=== PATIENT | male | born 1955 | race Caucasian/White ===

== ENCOUNTER → 2024-07-19 12:31 | Outpatient (BNVA) | payer MEDICARE, SELFPAY | PROVIDERS: PCP Family Medicine; Visit Provider Internal Medicine | DX: R07.9 Chest pain, unspecified (principal); I45.89 Other specified conduction disorders; R94.39 Abnormal result of other cardiovascular function study; R06.09 Other forms of dyspnea; E11.9 Type 2 diabetes mellitus without complications; G47.30 Sleep apnea, unspecified; E78.5 Hyperlipidemia, unspecified; I10 Essential (primary) hypertension; Z87.891 Personal history of nicotine dependence; I45.9 Conduction disorder, unspecified | CPT/HCPCS: 93005; 99204 ==

== ENCOUNTER 2024-08-06 08:19 | Outpatient (CLI) | payer MEDICARE, SELFPAY ==
[2024-08-06 08:44] LABS: Basophils % 0.4 %; Eosinophils # 0.2 10^3/uL (0.0-0.8); Eosinophils % 4.1 %; Hematocrit 41.4 % (37-53); Lymphocytes # 1.2 10^3/uL (0.8-4.8); Lymphocytes % 26.5 %; Mean Corpuscular HGB Conc 31.4 g/dL (30-55); Mean Corpuscular Hemoglobin 31.4 pg (27-33); Mean Platelet Volume 10.2 fL (7.4-10.4); Monocytes # 0.5 10^3/uL (0.2-0.9); Monocytes % 11.5 %; Neutrophils # 2.63 10^3/uL (1.8-7.7); Neutrophils % 57.1 %; Nucleated Red Blood Cells % 0 %; Platelet Count 185 10^3/cmm (157-399); Red Blood Count 4.14 10^6/uL (3.85-5.65); White Blood Count 4.61 10^3/uL (3.29-11.43)
[2024-08-06 09:00] LABS: Anion Gap 15.2 (5-19); Blood Urea Nitrogen 26 mg/dL (8-23); Calcium 8.9 mg/dL (8.5-10.5); Carbon Dioxide 30 mmol/L (22-29); Chloride 100 mmol/L (98-107); Glomerular Filtration Rate 50.1 mL/min (90-130); Glucose 221 mg/dL (65-115); Osmolality Calculated 302 mOsm/kg (285-295); Potassium 5.2 mmol/L (3.5-5.1); Sodium 140 mmol/L (136-145)
[2024-08-06 09:03] LABS: INR 0.85 (0.83-1.21); Prothrombin Time (Patient) 11.8 Seconds (12.0-15.1)
== END 2024-08-06 08:20 | disposition home or self-care (01) ==
LOC: LAB 08:22
PROVIDERS: PCP Family Medicine; Visit Provider Internal Medicine
DX: R07.9 Chest pain, unspecified (principal)
CPT/HCPCS: 36415; 80048; 85025; 85610

== ENCOUNTER 2024-08-23 20:13 | Outpatient (CLI) | payer MEDICARE, SELFPAY ==
[2024-08-23 20:13] VITALS: BP 137/90; PULSE 80; RESP 21; TEMP 37.1; O2SAT 90
--- NOTE | 2024-08-23 20:15 | P.HP_ITS ---
Providers/Chief Complaint 2 Admitting Physician: Shahbaz Burt M.D Primary Care Provider: Jt Guerin MD Chief Complaint: Heart Catheter History of Present Illness Lisbet Smith is a 69 year old male with past medical history of hypertension, hyperlipidemia, diabetes who has been having chest discomfort and has dyspnea on exertion. Also has orthopnea. He is on oxygen. Has significant COPD. Patient has RV dysfunction with EF of 40 to 45%. Also had a abnormal stress test. Plan for a left heart cath Review of Systems 2 General: Reports: 10 or more systems reviewed and unremarkable except in HPI and below Const: Denies: fatigue Card: Reports: chest pain, palpitations, swelling of feet/ankles, lightheadedness, pre-syncope, dyspnea on exertion and orthopnea; Denies: irregular heart rhythm or syncope Resp: Reports: dyspnea; Denies: productive cough or non-productive cough Musc: Denies: neck pain or back pain Neuro: Denies: headache(s) or dizziness Psych: Denies: anxiety, depression, suicidal ideation or homicidal ideation Jean/Lymph: Reports: easy bruising and easy bleeding Medications/Allergies Home Medications Medication Instructions Recorded Confirmed Last Taken Type albuterol sulfate 90 mcg/actuation 2 puff inhalation Q6H PRN 07/19/24 08/23/24 08/23/24 History aerosol inhaler Shortness Of Breath allopurinol 100 mg tablet 100 mg PO DAILY 07/19/24 08/23/24 08/23/24 History aspirin 81 mg tablet,delayed 81 mg PO DAILY 07/19/24 08/23/24 08/23/24 History release atorvastatin 10 mg tablet 10 mg PO DAILY 07/19/24 08/23/24 08/23/24 History budesonide 160 mcg-glycopyr 9 2 inh inhalation BID 07/19/24 08/23/24 08/23/24 History mcg-formot 4.8 mcg/actuation HFA inhaler (Breztri Aerosphere) dapagliflozin propanediol 10 mg 10 mg PO DAILY 07/19/24 08/23/24 08/23/24 History tablet (Farxiga) fluticasone propionate 50 1 spray intranasal BID 07/19/24 08/23/24 08/23/24 History mcg/actuation nasal spray,suspension furosemide 40 mg tablet 40 mg PO DAILY 0808/23/24 08/23/24 History gabapentin 600 mg tablet 600 mg PO BID 07/19/24 08/23/24 08/23/24 History losartan 100 mg tablet 50 mg PO DAILY 07/19/24 08/23/24 08/23/24 History metformin 1,000 mg tablet 1,000 mg PO BID 07/19/24 08/23/24 08/23/24 08:00 History trazodone 300 mg tablet 300 mg PO DAILY PRN Sleep 07/19/24 08/23/24 08/23/24 History budesonide 160 mcg-glycopyr 9 2 inh inhalation BID 08/23/24 08/23/24 08/23/24 History mcg-formot 4.8 mcg/actuation HFA inhaler ([facility] [employer]) famotidine 20 mg tablet 20 mg PO BID 08/23/24 08/23/24 08/23/24 History hydroxychloroquine 200 mg tablet 200 mg PO BID 08/23/24 08/23/24 Unknown History magnesium oxide 250 mg PO BID 08/23/24 08/23/24 08/23/24 History polyethylene glycol 3350 17 gram 17 g PO DAILY 08/23/24 08/23/24 Unknown History oral powder packet (Miralax) zinc sulfate 220 mg capsule 220 mg PO DAILY 08/23/24 08/23/24 Unknown History Allergies Allergy/AdvReac Type Severity Reaction Status Date / Time No Known Allergies Allergy Verified 07/19/24 12:40 PFSH Acute 2 PFSH: Medical History Diabetes mellitus Sleep apnea Hyperlipemia Hypertension Family History Mother Hypertension Diabetes Social History Smoking and tobacco/nicotine status: former use of tobacco/nicotine Physical Exam 2 Narrative: GENERAL: Patient is alert, awake and oriented x3. [] NECK: No jugular vein distension. [] HEENT: No cyanosis. No icterus. No pallor. [] HEART: Regular S1 and S2. No murmur, rub or gallop. [] LUNGS: Clear to auscultate bilaterally. [] CENTRAL NERVOUS SYSTEM: Grossly nonfocal. [] EXTREMITIES: Lower extremities with 1+ edema bilaterally Data 08/23/24 21:28 08/24/24 06:10 A&P Assessment and plan (1) Chest pain: (2) Dyspnea on exertion: (3) Hypertension: (4) Hyperlipemia: (5) LV dysfunction: (6) Abnormal stress test: (7) Diabetes mellitus: Plan Patient is here for coronary angiogram with possible PCI. Admitted for hydration as last creatinine was 1.4. Will start IV fluids @75cc/hour. We will continue home medications for now. NPO past midnight. Attestations 2 Medical Necessity Statement*: Care not expected to cross 2 midnights. Preadmitted for hydration prior to coronary angiogram Coding Level of Care Code Acute Code for [facility] Diagnoses Chest pain R07.9 Dyspnea on exertion R06.09 Hypertension I10 Hyperlipemia E78.5 LV dysfunction I51.9 Abnormal stress test R94.39 Diabetes mellitus E11.9
[2024-08-23 20:33] VITALS: BMI 37.8
[2024-08-23] MEDS: sodium chloride 0.9% 1,000 ML 75 ML IV ×2 (20:56→22:09)
[2024-08-23 21:51] LABS: Basophils % 0.5 %; Eosinophils # 0.1 10^3/uL (0.0-0.8); Eosinophils % 1.7 %; Lymphocytes # 1.5 10^3/uL (0.8-4.8); Lymphocytes % 24.8 %; Mean Corpuscular HGB Conc 31.2 g/dL (30-55); Mean Corpuscular Hemoglobin 31.1 pg (27-33); Mean Corpuscular Volume 99.8 fl (82-101); Mean Platelet Volume 10.9 fL (7.4-10.4); Monocytes # 0.6 10^3/uL (0.2-0.9); Monocytes % 10.2 %; Neutrophils # 3.68 10^3/uL (1.8-7.7); Neutrophils % 62.5 %; Nucleated Red Blood Cells % 0 %; Platelet Count 186 10^3/cmm (157-399); Red Blood Count 4.21 10^6/uL (3.85-5.65); Red Cell Distribution Width 13.6 % (12.1-15.1); White Blood Count 5.89 10^3/uL (3.29-11.43)
[2024-08-23 22:07] LABS: Blood Urea Nitrogen 21 mg/dL (8-23); Calcium 9.4 mg/dL (8.5-10.5); Carbon Dioxide 29 mmol/L (22-29); Chloride 99 mmol/L (98-107); Creatinine Clr Calc Pharmacy 76.4977; Glomerular Filtration Rate 59.9 mL/min (90-130); Glucose 182 mg/dL (65-115); Osmolality Calculated 298 mOsm/kg (285-295); Sodium 140 mmol/L (136-145)
[2024-08-23 22:10] LABS: Anion Gap 16.5 (5-19); Potassium 4.5 mmol/L (3.5-5.1)
[2024-08-24] VITALS (13 sets, daily range): BP systolic 134–161; BP diastolic 69–97; PULSE 60–95; RESP 17–32; TEMP 36.3–37; O2SAT 91–96; BMI 37.8
--- NOTE | 2024-08-24 06:12 | XACV_ITS ---
Exam Room: [facility] Ht: 180 cm Wt: 121 kg BSA: 2.51 m2 Gender: Male : 1955 Any Known Allergies: No known allergies Exam Priority: Routine Procedure(s): Procedure Description: Diagnostic procedure Procedure Description: PCI procedure Procedure Description: Drug Eluting Coronary Stent Procedure Description: PTCA Procedure Description: Miscellaneous Procedure Description: ACT Procedure Description: Coronary Angiography Diagnostic Cath Status: Elective Diagnostic Findings * INDICATION: 69 year old male with past medical history of hypertension, hyperlipidemia, diabetes who has been having chest discomfort and has dyspnea on exertion. Also has orthopnea. He is on oxygen. Has significant COPD. Patient has LV dysfunction with EF of 40 to 45%. Also had a abnormal stress test. Plan for a left heart cath. * Left Main has no significant disease. * Left Anterior Descending has no significant disease. * Mid Circumflex: mild to moderate 40% stenosis, JOSE: 3 flow. * Mid Right Coronary Artery: significant 80% stenosis, JOSE: 3 flow. * Distal Right Coronary Artery: severe 90% stenosis, JOSE: 3 flow. * Coronary angiography shows right dominance. PCI Status: Elective PCI Indication: Other Interventional Findings * Procedure detail: We engaged RCA with JR4 guide catheter. IV heparin was administered to maintain anticoagulation. 0.014 run-through guidewire was used to cross the stenosis. We predilated distal RCA stenosis with 2.5 x 15 mm semicompliant balloon. This was followed by placement of 2.5 x 26 mm resolute Y[place] drug-eluting stent. We postdilated the stent with 2.75 x 12 mm NC balloon. Mid RCA stenosis was predilated with 2.5 x 15 mm semicompliant balloon. This was followed by placement of 2.75 x 30 mm resolute [place] drug-eluting stent. Stent was postdilated with 2.75 x 12 mm NC balloon. At this time final angiogram was performed that showed excellent stent expansion, no residual stenosis and JOSE-3 flow. Guidewire and guide catheter were removed. Patient left the [place] in a stable condition.. * Mid Right Coronary Artery: 80% stenosis treated with a AB TREK 2.50X15 RX BALLOON, MDT R YIMI 2.75X30 MONY, and MDT NC EUPHORA RX [id number] BALLOON. 0% residual stenosis, JOSE: 3 flow. * Distal Right Coronary Artery: 90% stenosis treated with a AB TREK 2.50X15 RX BALLOON, MDT R YIMI 2.5X26 MONY, and MDT NC EUPHORA RX [id number] BALLOON. 0% residual stenosis, JOSE: 3 flow. Conclusions 1. Severe mid and distal RCA stenosis. Status post successful revascularization with 2 stents.. 2. Mid Right Coronary Artery was treated with a Balloon, Drug Eluting Stent, and Balloon. 3. Distal Right Coronary Artery was treated with a Balloon, Drug Eluting Stent, and Balloon. Recommendations * Dual antiplatelet therapy with aspirin and plavix for at least 1 year. * Statin therapy. * Outpatient cardiology follow up in 2 weeks. Interventional RX Recommendation: PCI w/o planned CABG Diagnostic RX Recommendation: PCI w/o planned CABG Anticoagulation: Heparin Pressures Phase:Rest AO : 162 / 89 ( 116 ) @ 8:37:00 AM 124 / 88 ( 106 ) @ 8:47:00 AM 158 / 77 ( 108 ) @ 8:49:00 AM 148 / 91 ( 116 ) @ 9:03:00 AM 117 / 80 ( 98 ) @ 9:12:00 AM Clinical Evaluation EBL: 5mL-10mL Procedural Details Procedure Consent Obtained. Pre-Procedure Time Out. Identified patient by full name and date of as verbalized by the patient/guarantor. Does the consent match the physician's order: Yes. Accurate & Complete Informed Consent: Yes. Inpatient/Outpatient History & Physical on Chart: Yes. If H&P is completed, is and addenduem needed: No. Visualize and Verify Site with Patient/Guarantor: N/A. Relevant Radiology Images available: Yes. [facility] Clinical Fraility Score: 4: Vulnerable. [place] Indications: LV Dysfunction/abnormal stress test. Chest Pain Symptom Assessment: Typical Angina Symptoms. Cardiovascular Instability: No. The risks, benefits, and alternatives of sedation and/or procedure were discussed by physician. The patient agrees to continue. Procedure started. Correct patient, site and procedure confirmed by cath team. PERRLA. Strong, equal hand roll over press operator bilaterally. Lungs clear x 5 lobes. IV Site on Arrival: 20 gauge in the right forearm. IV Fluids: 0.9% NaCl at KVO. 700 mL infused prior to laborer high density press. Pre Procedural Pulses: right dorsalis pedis was 2+. Pre Procedural Pulses: left dorsalis pedis was 3+. Pre Procedural Pulses: bilateral posterior tibial was 2+. Pre Procedural Pulses: bilateral radial was 2+. Oxygen started at 4liters/min via nasal canula. right groin was prepped with chloroprep then draped in the usual sterile fashion. right radial was prepped with chloroprep then draped in the usual sterile fashion. Physician notified. Baseline sample Acquired. HR: 89 BPM. Patient's family unavailable. Equipment: 6F - Radial. Cardiac Cath Pack. ACIST Manifold Kit Model BT 2000. Heparinized Saline (2 units/mL), 1000 mL bag. Physician arrived. Physician scrubbed in. Immediate Pre-Procedure Time Out. Correct Patient: Yes; Correct Procedure: Yes; Correct Site: Yes; Correct Patient Position: Yes; Correct Supplies: Yes; Dried Flammable Prep: Yes; Blood Products Available: N/A;. Lidocaine 1% infiltrated to the right radial. Arterial access obtained. A 5 greek TIG catheter in over the exchange J wire. Multiple views taken of left coronary artery. Catheter redirected to the RCA. Catheter removed over the exchange J wire. A 5 greek JL3.5 catheter in over the exchange J wire. Multiple views taken of left coronary artery. Catheter removed over the exchange J wire. 6 greek JR 4 guide catheter was inserted over the wire. Runthrough guidewire was advanced through the guide catheter to lesion in the mid-distal RCA. Inflation number : 1 A AB TREK 2.50X15 RX BALLOON was prepped and advanced across the Dist RCA , then inflated to 8 MIKAELA for 0:16 seconds. Inflation number: 2 The AB TREK 2.50X15 RX BALLOON was reinflated across the Dist RCA, to 8 MIKAELA for 0:13 seconds. Inflation number: 1 The AB TREK 2.50X15 RX BALLOON was reinflated across the Mid RCA, to 10 MIKAELA for 0:11 seconds. Inflation number: 2 The AB TREK 2.50X15 RX BALLOON was reinflated across the Mid RCA, to 10 MIKAELA for 0:11 seconds. Balloon out. Results checked. Inflation Number : 3 A MDT R YIMI 2.5X26 MONY -Lot Number# [id number] was prepped and advanced across the Dist RCA. The stent was deployed at 12 MIKAELA for 0:21 seconds. Exp. 2026-07-23. Stent balloon out over wire. Inflation Number : 3 A MDT R YIMI 2.75X30 MONY -Lot Number# [id number] prepped and advanced across the Mid RCA. The stent was deployed at 14 MIKAELA for 0:29 seconds. Exp. 2024-10-07. Stent balloon out over wire. Inflation number : 4 A MDT NC EUPHORA RX [id number] BALLOON was prepped and advanced across the Dist RCA , then inflated to 14 MIKAELA for 0:19 seconds. Inflation number: 4 The MDT NC EUPHORA RX [id number] BALLOON was reinflated across the Mid RCA, to 20 MIKAELA for 0:17 seconds. Inflation number: 5 The MDT NC EUPHORA RX [id number] BALLOON was reinflated across the Mid RCA, to 20 MIKAELA for 0:09 seconds. Balloon out. ACT drawn. Results seconds. Therapeutic limits - pre-heparin administration 90-150 seconds and monitoring heparin during a vascular procedure >250 seconds. Results checked. Accu check = 190. Wire out. Guide catheter out over the exchange J wire. Dr. Burt scrubbed out. A TR Band was successful obtaining hemostatsis at the Right Radial artery insertion site. Post Procedure: Pulses reassessed and unchanged. PERRLA. Strong, equal hand roll over press operator bilaterally. No VTE prophylaxis required. Medication's Wasted: Lidocaine 1% = 18 mL. Medication's Wasted: Nitro = 49.6 mg. Medication's Wasted: Other = Fentanyl 25 mcg. Total IV fluids: 70 mL. PCI Indication: CAD (without ischemic symptoms). Post-op diagnosis: PCI of the Distal and Mid RCA. Complications: none. Estimated blood loss: 5mL-10mL. Responsiveness - Normal response to verbal stimuli; alert and oriented, PERRLA. Airway - Unaffected, no intervention required; spontaneous ventilation. Circulation: W/N/L, pulses unchanged. Nausea/Vomiting: No. Procedure completed. Patient transferred by bed to CPRU. Vital chart was stopped. Access Site Site: Right Radial artery Sheath Size: 6 Fr Hemostasis Method: TR Band Hemostasis Success: Successful Procedure Medications Start: 7:28 AM Stop: 7:28 AM Medication: Versed Amount: 1 mg Route: I.V. Start: 7:28 AM Stop: 7:28 AM Medication: Fentanyl Amount: 50 mcg Route: I.V. Start: 7:35 AM Stop: 7:35 AM Medication: Nitrogylcerin Amount: 200 mcg Route: I.A. Start: 7:37 AM Stop: 7:37 AM Medication: Heparin Amount: 5000 units Route: I.V. Start: 7:46 AM Stop: 7:46 AM Medication: Versed Amount: 1 mg Route: I.V. Start: 7:51 AM Stop: 7:51 AM Medication: Heparin Amount: 6000 units Route: I.V. Start: 8:04 AM Stop: 8:04 AM Medication: Fentanyl Amount: 25 mcg Route: I.V. Start: 8:11 AM Stop: 8:11 AM Medication: Nitrogylcerin Amount: 200 mcg Route: I.A. Start: 8:22 AM Stop: 8:22 AM Medication: Plavix Amount: 600 mg Route: P.O. I, the attending physician, have reviewed and verified all procedure medications. Yes, all medications given per verbal order History/Risk Factors Hypertension: Yes Dyslipidemia: Yes Peripheral Arterial Disease (PAD): No Myocardial Infarction (UT): No Obesity: Yes Renal Disease: No Tobacco Use: Former Prior Interventions PCI: No CABG: No Valve Surgery: No Report Signatures Finalized by Shahbaz Burt MD on 08/29/2024 07:16 PM
[2024-08-24] MEDS: diphenhydrAMINE 50 mg Capsule PO (06:19)
[2024-08-24] MEDS: aspirin 325 mg Tablet PO (06:19)
[2024-08-24 06:46] LABS: Anion Gap 14.6 (5-19); Blood Urea Nitrogen 19 mg/dL (8-23); Carbon Dioxide 31 mmol/L (22-29); Chloride 101 mmol/L (98-107); Creatinine Clr Calc Pharmacy 76.4977; Glomerular Filtration Rate 59.9 mL/min (90-130); Glucose 198 mg/dL (65-115); Osmolality Calculated 302 mOsm/kg (285-295); Potassium 4.6 mmol/L (3.5-5.1); Sodium 142 mmol/L (136-145)
--- NOTE | 2024-08-24 08:13 | PC.NURSE ---
to cardiac aquatic laborer via bed at 0700
[2024-08-24 08:54] LABS: Glucose Point of Care 190 mg/dL (70-110)
--- NOTE | 2024-08-24 10:07 | PC.NURSE ---
received from cardiac label cutter via bed at 0905.report received.pt is alert and oriented x 4.denies pain at present.sr on monitor.right wrist with tr band on and inflated.right hand is warm to touch and with brisk capillary refill.palpable radial pulse noted distal to tr band.no hematoma noted.pt instructed in activity restrictions s/p radial artery procedure...and instructed to notify staff for any bleeding,pain,sob,numbness...or for any concerns at all.pt verb understanding of instructions
[2024-08-24 11:48] LABS: Glucose Point of Care 219 mg/dL (70-110)
[2024-08-24] MEDS: sodium chloride 0.9% 1,000 ML 50 ML IV (15:23)
--- NOTE | 2024-08-24 15:25 | PC.NURSE ---
tr band slowly deflated and eventually removed at 1330.right hand remains warm to touch and with brisk capillary refill.palpable radial pulse noted.no hematoma noted.site dressed with 2x2 gauze and secured with biocclusive drsg.pt instructed in activity restrictions s/p tr band removal..and instructed to notify staff for any bleeding,pain,numbness,pain..or for any concerns at all.pt verb understanding of instructions.
[2024-08-24] MEDS: ipratropium-albuterol 3 mL Neb INHALATION (15:48)
--- NOTE | 2024-08-24 16:29 | PM.DCS ---
Discharge Providers Date of Admission: 08/23/2024 Date of Discharge: August 24, 2024 Attending Provider at Admission: Shahbaz Burt MD Attending Provider at Discharge: Shahbaz Burt M.D Primary Care Provider: Jt Guerin MD Diagnoses at Discharge Discharge Diagnosis (1) Chest pain: Status: Inactive (2) Dyspnea on exertion: Status: Acute (3) Hypertension: Status: Acute (4) Hyperlipemia: Status: Acute (5) LV dysfunction: Status: Acute (6) Abnormal stress test: Status: Inactive (7) Diabetes mellitus: Status: Acute Reason for Visit Reason for Visit: Left heart cath Brief History: 69 year old male with past medical history of hypertension, hyperlipidemia, diabetes who has been having chest discomfort and has dyspnea on exertion. Also has orthopnea. He is on oxygen. Has significant COPD. Patient has LV dysfunction with EF of 40 to 45%. Also had a abnormal stress test. Plan for a left heart cath. Preadmitted for hydration. Hospital Course Hospital Course Coronary angiogram demonstrated severe mid and distal RCA stenosis. Underwent successful revascularization with 2 stents. Creatinine was stable on day of procedure. Patient wanted to go home and was stable. Was discharged home on dual antiplatelet therapy. Physical Exam Narrative: GENERAL: Patient is alert, awake and oriented x3. [] NECK: No jugular vein distension. [] HEENT: No cyanosis. No icterus. No pallor. [] HEART: Regular S1 and S2. No murmur, rub or gallop. [] LUNGS: Clear to auscultate bilaterally. [] CENTRAL NERVOUS SYSTEM: Grossly nonfocal. [] EXTREMITIES: Lower extremities with 1+ edema bilaterally Discharge Data Studies Completed and Pending Pending at discharge Category Date Time Status ANTIQUE REFINISHER request for service Routine Exams 08/24/24 06:12 Taken Laboratory Results WBC 5.89 10^3/uL (3.29-11.43) 08/23/24 21:28 RBC 4.21 10^6/uL (3.85-5.65) 08/23/24 21:28 Hgb 13.10 g/dL (11.27-16.99) 08/23/24 21:28 Hct 42.0 % (37-53) 08/23/24 21:28 MCV 99.8 fl (82-101) 08/23/24 21:28 MCH 31.1 pg (27-33) 08/23/24 21: MCHC 31.2 g/dL (30-55) 08/23/24 21: RDW 13.6 % (12.1-15.1) 08/23/24: Plt Count 186 10^3/cmm (157-399) 08/23/24 21: MPV 10.9 fL (7.4-10.4) H 08/23/24 21: Neut % (Auto) 62.5 % 08/23/24 21: Lymph % (Auto) 24.8 % 08/23/24 21: [place] % (Auto) 10.2 % 08/23/24: Eos % (Auto) 1.7 % 08/23/24: Baso % (Auto) 0.5 % 08/23/24: Neut # (Auto) 3.68 10^3/uL (1.8-7.7) 08/23/24: Lymph # (Auto) 1.5 10^3/uL (0.8-4.8) 08/23/24 21: [place] # (Auto) 0.6 10^3/uL (0.2-0.9) 08/23/24: Eos # (Auto) 0.1 10^3/uL (0.0-0.8) 08/23/24 21: Baso # (Auto) 0.0 10^3/uL (0.0-0.1) 08/23/24: Nucleated RBC % (auto) 0 % 08/23/24 21: Nucleated RBCs # 0.0 /100WBC 08/23/24 21: Sodium 142 mmol/L (136-145) 08/24/24 06:10 Potassium 4.6 mmol/L (3.5-5.1) 08/24/24 06:10 Chloride 101 mmol/L (98-107) 08/24/24 06:10 Carbon Dioxide 31 mmol/L (22-29) H 08/24/24 06:10 Anion Gap 14.6 (5-19) 08/24/24 06:10 BUN 19 mg/dL (8-23) 08/24/24 06:10 Creatinine 1.2 mg/dL (0.7-1.2) 08/24/24 06:10 GFR Calculation 59.9 mL/min (90-130) L 08/24/24 06:10 Glucose 198 mg/dL (65-115) H 08/24/24 06:10 POC Glucose 219 mg/dL (70-110) H 08/24/24 11:44 Calculated Osmolality 302 mOsm/kg (285-295) H 08/24/24 06:10 Calcium 9.0 mg/dL (8.5-10.5) 08/24/24 06:10 Vitals Last Vital Signs Temp 97.4 F L 08/24/24 11:57 Pulse 69 08/24/24 15:48 Resp 18 08/24/24 15:48 BP 134/78 08/24/24 11:57 Pulse Ox 95 08/24/24 15:48 O2 Del Method Nasal Cannula 08/24/24 15:48 O2 Flow Rate 2 08/24/24 15:48 Discharge Plan Discharge Patient Disposition: Home Prescriptions: New clopidogrel 75 mg tablet 75 mg PO DAILY Qty: 90 3RF Continued albuterol sulfate 90 mcg/actuation HFA aerosol inhaler 2 puff inhalation Q6H PRN (Reason: Shortness Of Breath) aspirin 81 mg tablet,delayed release (DR/EC) 81 mg PO DAILY atorvastatin 10 mg tablet 10 mg PO DAILY furosemide 40 mg tablet 40 mg PO DAILY losartan 100 mg tablet 50 mg PO DAILY gabapentin 600 mg tablet 600 mg PO BID dapagliflozin propanediol [Farxiga] 10 mg tablet 10 mg PO DAILY trazodone 300 mg tablet 300 mg PO DAILY PRN (Reason: Sleep) allopurinol 100 mg tablet 100 mg PO DAILY Breztri Aerosphere 160-9-4.8 mcg/actuation HFA aerosol inhaler 2 inh inhalation BID fluticasone propionate 50 mcg/actuation spray,suspension 1 spray intranasal BID Rx Instructions: administer into each nostril Miralax 17 gram Powder In Packet 17 g PO DAILY famotidine 20 mg Tablet 20 mg PO BID hydroxychloroquine 200 mg tablet 200 mg PO BID magnesium oxide 250 mg magnesium Tablet 250 mg PO BID Breztri Aerosphere 160-9-4.8 mcg/actuation HFA aerosol inhaler 2 inh INHALATION BID zinc sulfate 220 mg Capsule 220 mg PO DAILY Held metformin 1,000 mg tablet 1,000 mg PO BID Hold Instructions: Resume on 08/26/24. Discharge Orders: Discharge Order (Routine); Ordered 08/24/24 Ordered By: Shahbaz Burt Referrals: Gloria Ovalle FNP [Nurse Practitioner] - 09/01/24 2:30 pm Jt Guerin MD [Primary Care Provider] - 08/31/24 11:30 am Diet: Cardiac and Diabetic Activity: Increase activity as tolerated Patient Instructions: Clopidogrel (By mouth) (Plavix), Chest Pain Stoplight, Post Angiogram Home Care Instructions Discharge Date/Time: 08/24/24 17:15 Discharge Attestations Time Spent in Discharge Care*: less than 30 min Quality Metrics Clinical Quality Measures [ No reported AMI, CVA or VTE this stay] Coding Level of Care Code Acute Code for [facility] Diagnoses Chest pain R07.9 Dyspnea on exertion R06.09 Hypertension I10 Hyperlipemia E78.5 LV dysfunction I51.9 Abnormal stress test R94.39 Diabetes mellitus E11.9
--- NOTE | 2024-08-24 17:05 | PC.NURSE ---
plavix prescription filled by [facility] pharmacy meds to beds program
--- NOTE | 2024-08-24 17:14 | PC.NURSE ---
discharge instructions given and explained.pt and daughter verb understanding of instructions.discharged via w/c to exit at this time
== END 2024-08-24 17:15 | disposition home or self-care (01) ==
LOC: OPCSU 21:37
PROVIDERS: PCP Family Medicine; Visit Provider Internal Medicine
DX: I25.10 Atherosclerotic heart disease of native coronary artery without angina pectoris (principal); E78.5 Hyperlipidemia, unspecified; E66.9 Obesity, unspecified; Z68.37 Body mass index [BMI] 37.0-37.9, adult; Z87.891 Personal history of nicotine dependence; E11.9 Type 2 diabetes mellitus without complications; R94.39 Abnormal result of other cardiovascular function study; Z79.84 Long term (current) use of oral hypoglycemic drugs; G47.30 Sleep apnea, unspecified; Z82.49 Family history of ischemic heart disease and other diseases of the circulatory system; I11.0 Hypertensive heart disease with heart failure
CPT/HCPCS: 36415; 36416; 80048; 82962; 85025; 85347; 93454; 94640; 99152; 99153; C1725; C1769; C1874; C1887; C1894; C9600; J1644; J2250; J3010; J3490; J7030; Q0163; Q9967

== ENCOUNTER → 2024-09-01 14:30 | Outpatient (BNVA) | payer MEDICARE, SELFPAY | PROVIDERS: PCP Family Medicine; Visit Provider Nurse Practitioner Family | DX: I25.10 Atherosclerotic heart disease of native coronary artery without angina pectoris (principal); Z95.5 Presence of coronary angioplasty implant and graft; I10 Essential (primary) hypertension; Z87.891 Personal history of nicotine dependence | CPT/HCPCS: 99214 ==

== ENCOUNTER 2024-09-10 14:41 | Outpatient (CLI) | payer MEDICARE, SELFPAY ==
--- NOTE | 2024-09-10 15:00 | USCV_ITS ---
Lisbet Smith Age: 69 Gender: M : 1955 Exam Date: 09/10/2024 15:08 Ordering Phys: Gloria Ovalle Technologist: ETHAN Exam Location: [facility] [place] Indication: LE Redness Risk Factors: Previous Vascular Surgery: RIGHT LEFT BP: 143.0 / 83.00 BP: 143.0/ 80.00 0 0 Waveform Velocity (cm/s) Velocity (cm/s) Waveform Triphasic 114.8 Iliac Prox 99.5 Triphasic Triphasic 134.7 Iliac Mid 94.5 Triphasic Triphasic Iliac Distal Triphasic 115.9 100.5 Triphasic 136.0 PROVIDER RELATIONS MANAGER 108.0 Triphasic Triphasic 147.0 SFA Prox 133.0 Triphasic Triphasic 95.0 SFA Mid 136.0 Triphasic Triphasic 110.0 SFA Dist 181.0 Triphasic Triphasic 102.0 POP 96.0 Triphasic Triphasic 80.0 TRAFFIC ANALYSIS TECHNICIAN 72.0 Triphasic Biphasic 63.0 DPA 63.0 Biphasic 1.0 TONY 1.0 FINDINGS Mild to moderate diffuse heterogenous plaques in the iliac and femoral arteries bilaterally. Resting TONY 1.0 bilaterally Near normal Doppler waveforms bilaterally CONCLUSIONS Mild to moderate diffuse heterogenous plaques in the iliac and femoral arteries bilaterally Normal resting ABIs bilaterally suggesting no significant arterial obstruction Dr Pari Jules MD [facility] (Electronically Signed) Final Date: 13 September 2024 08:14 S
== END 2024-09-10 14:42 | disposition home or self-care (01) ==
PROVIDERS: PCP Family Medicine; Visit Provider Nurse Practitioner Family
DX: I70.203 Unspecified atherosclerosis of native arteries of extremities, bilateral legs (principal); I70.8 Atherosclerosis of other arteries
CPT/HCPCS: 93925

== ENCOUNTER 2024-10-15 11:42 | Outpatient (CLI) | payer MEDICARE, SELFPAY ==
--- NOTE | 2024-10-15 12:00 | USCV_ITS ---
Lisbet Smith Age: 69 Gender: M : 1955 Exam Date: 10/15/2024 11:53 Ordering Phys: Gloria Ovalle Technologist: ETHAN [place]am [place] [facility] [place]: HISTORY: PROCEDURES: FINDINGS: The veins were found to be easily compressible with spontaneous blood flow. Non pulsatile flow pattern. No evidence of any instability is noted on the right side neither in the deep nor in the superficial veins. On the left side, venous reflux was noted at the level of the proximal greater saphenous and mid small saphenous vein segments. Reflux time was 0.89 and 0.56 seconds respectively. These venous segments where found to be measuring 0.42 and 0.23 cm respectively in diameter. Both of these segments were found to be superficial, less than 1 cm deep from the surface-0.86 and 0.32 centimeter respectively from the surface. CONCLUSIONS 1. No evidence of DVT or any superficial vein thrombosis in the above- mentioned veins. 2. Significant venous reflux of greater than 500 ms were noted at the proximal greater saphenous and mid small saphenous vein segments on the left side. However these segments are found to be superficial, less than 1 cm deep from the surface. The venous dimensions, a reflux time and depth from the surface are as mentioned above Dr Pari Jules MD [facility] (Electronically Signed) Final Date: 21 October 2024 08:35 S
== END 2024-10-15 11:43 | disposition home or self-care (01) ==
LOC: RAD 11:44
PROVIDERS: PCP Family Medicine; Visit Provider Nurse Practitioner Family
DX: I87.2 Venous insufficiency (chronic) (peripheral) (principal); T14.8XXD Other injury of unspecified body region, subsequent encounter; X58.XXXA Exposure to other specified factors, initial encounter
CPT/HCPCS: 93970